=== PATIENT | female | born 1940 | race Caucasian/White ===

== ENCOUNTER 2017-05-28 08:44 | Outpatient (CLI) | payer MEDICARE, BC ==
[2017-05-28] VITALS (13 sets, daily range): BP systolic 147–171; BP diastolic 70–97; PULSE 71–102; TEMP 98
[~2017-05-28] VITALS: Ht 160 cm; Wt 58.0 kg
[~2017-05-28 08:44] MED LIST: ALTACE 5MG5 MG PO; IPRATROPIUM BROM3 M1 IH; NORCO 325 MG-51 TAB PO; NORVASC2.5 MG PO; TIROSINT75 MC1 PO; VITAMIN D32000 IU PO; XANAX .25M0.25 MG/TA PO; ZOCOR 20MG20 MG PO
== END 2017-05-28 13:56 | disposition home or self-care (01) ==
LOC: COL.RAD 08:44
DX: R91.1 Solitary pulmonary nodule (principal); J95.830 Postprocedural hemorrhage of a respiratory system organ or structure following a respiratory system procedure
CPT/HCPCS: J3010

== ENCOUNTER 2017-06-19 06:23 | Day surgery (SDC) | payer MEDICARE, BC ==
[~2017-06-19] VITALS: Ht 157.5 cm; Wt 58.7 kg
[2017-06-19 07:38] VITALS: BP 134/67; PULSE 703; TEMP 97.6
[2017-06-19] MEDS ORDERED: PROLIA60 MG/ML SQ (07:50)
[2017-06-19 08:55] VITALS: BP 131/52; PULSE 87; TEMP 97.5
[2017-06-19 09:10] VITALS: BP 124/72; PULSE 97
[2017-06-19 09:25] VITALS: BP 129/112; PULSE 87
[2017-06-19 09:40] VITALS: BP 148/67; PULSE 85
[2017-06-19 16:37] VITALS: BP 126/60; PULSE 91
== END 2017-06-19 10:15 | disposition home or self-care (01) ==
LOC: SDCO 06:23
DX: C34.11 Malignant neoplasm of upper lobe, right bronchus or lung (principal); J44.9 Chronic obstructive pulmonary disease, unspecified; I10 Essential (primary) hypertension; F32.9 Major depressive disorder, single episode, unspecified; E03.9 Hypothyroidism, unspecified; F17.210 Nicotine dependence, cigarettes, uncomplicated; Z90.49 Acquired absence of other specified parts of digestive tract; Z90.710 Acquired absence of both cervix and uterus; Z95.828 Presence of other vascular implants and grafts; Z86.73 Personal history of transient ischemic attack (TIA), and cerebral infarction without residual deficits; Z80.0 Family history of malignant neoplasm of digestive organs; Z80.8 Family history of malignant neoplasm of other organs or systems
CPT/HCPCS: J2704; J7120